=== PATIENT | male | born 1985 | race Caucasian/White ===

== ENCOUNTER → 2019-03-03 | Outpatient (CLI) | payer OTHER | END | disposition home or self-care (01) | LOC: LAB 14:00 → LAB SHORT 14:00 | DX: R10.84 Generalized abdominal pain (principal) | CPT/HCPCS: 87338 ==

== ENCOUNTER 2019-06-21 09:08 | Day surgery (SDC) | payer OTHER ==
[~2019-06-21] VITALS: Ht 177.8 cm; Wt 71.6 kg
[~2019-06-21 09:08] MED LIST: EPIPEN 2-P0.3 MG/0.3 IM
== END 2019-06-21 10:50 | disposition home or self-care (01) ==
LOC: ORSCSDS 09:08
PROVIDERS: Student in an Organized Health Care Education/Training Program
PROC: 0DB48ZX Excision of Esophagogastric Junction, Via Natural or Artificial Opening Endoscopic, Diagnostic (ICD-10-PCS; principal; 2019-06-21 10:15)
PROC: 0DB88ZX Excision of Small Intestine, Via Natural or Artificial Opening Endoscopic, Diagnostic (ICD-10-PCS; principal; 2019-06-21 10:15)
PROC: 0DB68ZX Excision of Stomach, Via Natural or Artificial Opening Endoscopic, Diagnostic (ICD-10-PCS; principal; 2019-06-21 10:15)
DX: R10.13 Epigastric pain (principal); K29.70 Gastritis, unspecified, without bleeding; E78.5 Hyperlipidemia, unspecified; Z87.891 Personal history of nicotine dependence
CPT/HCPCS: J2704; J7120